=== PATIENT | male | born 1980 | race Two or more races ===

== ENCOUNTER 2024-01-16 11:03 | Emergency (ER) | payer OTHER, SELFPAY ==
[2024-01-16 11:08] VITALS: BP 149/91; PULSE 56; TEMP 36.8; O2SAT 97; BMI 31.3
--- NOTE | 2024-01-16 11:19 | ED_ITS ---
HPI HPI - Extremity Injury (Lower) General Chief Complaint: Extremity Injury, Lower Stated Complaint: LOWER EXTREMITY PAIN Time Seen by Provider: 01/16/24 11:13 Source: patient Mode of arrival: walk-in Limitations: no limitations History of Present Illness HPI Narrative: Patient is coming to the ER with a left knee pain that started almost a month ago, mentioned that one of his kids kicked him in the lateral aspect of his left knee when he started having pain medially, he mentioned that the pain initially was tolerated but sometimes he is not able to put full weight on his knee especi ally over the last few days he has the pain worse. The patient mentioned that he did not have any [id number]-[id number] medication he denies any other complaints There is also no other injuries Related Data Previous Rx's ?Medication ?Instructions ?Recorded acetaminophen 650 mg 650 mg PO Q8H PRN pain #20 tabs 01/16/24 tablet,extended release (Tylenol 8 Hour) prednisone 20 mg tablet 40 mg (2 x 20 mg) PO DAILY 5 days 01/16/24 #10 tabs Allergies Allergy/AdvReac Type Severity Reaction Status Date / Time No Known Drug Allergies Allergy Verified 01/16/24 11:10 Opioid HPI Opioid Management Most Recent Pain and Opioid Data: Last ED Pain Assessment 01/16/24 12:01 Review of Systems ROS Status of ROS 10 or more systems reviewed and unremark able except as noted in history and below Exam Narrative Exam Narrative: Nurses notes and vital signs reviewed and patient is not hypoxic. General: Well-appearing and in no apparent distress. Skin: Warm, dry, no pallor noted. No rash. Head: Normocephalic, atraumatic. Neck: Supple, non-tender. Eye: Pupils are equal, round and EOMI. No scleral icterus. Ears, Nose, Mouth, and Throat: TM are clear, no nasal mucosal hypertrophy. Oral mucosa is moist, no posterior oropharynx erythema, uvula is mid-line Cardiovascular: Regular Rate and Rhythm without murmur, gallop or rub. Respiratory: No accessory muscle use or respiratory distress. Lungs are clear to auscultation, no wheezing, rales or rhonchi Chest Wall: no tenderness Back: No midline thoracic or lumbar vertebral tenderness. No CVA tenderness Musculoskeletal: normal ROM, no calf or popliteal tenderness, no lower extremity edema/swelling, left knee examination showed that the patient have full range of movement anterior and posterior drawer signs are negative and the patient have right-sided medial tenderness GI: Abdomen is soft, non-distended. Normal bowel sounds. No masses appreciated. No tenderness to palpation. No rebound, guarding, or rigidity noted. Neurological: A&O x4. No cranial nerve dysfunction observed. No truncal ataxia. Moves all extremities. Sensation intact. Psychiatric: Cooperative and interactive. Normal mood and affect. Constitutional Vital Signs, click to edit/add: Last Vital Signs Temp 98.2 F 01/16/24 11:08 Pulse 56 L 01/16/24 11:08 Resp 18 01/16/24 11:08 BP 149/91 H 01/16/24 11:08 Pulse Ox 97 01/16/24 11:08 O2 Del Method Room Air 01/16/24 11:08 Course Vital Signs Vital signs: Vital Signs Temperature 98.2 F 01/16/24 11:08 Pulse Rate 56 L 01/16/24 11:08 Respiratory Rate 18 01/16/24 11:08 Blood Pressure 149/91 H 01/16/24 11:08 Pulse Oximetry 97 01/16/24 11:08 Oxygen Delivery Method Room Air 01/16/24 11:08 Temperature 98.2 F 01/16/24 11:08 Pulse Rate 56 L 01/16/24 11:08 Respiratory Rate 18 01/16/24 11:08 Blood Pressure 149/91 H 01/16/24 11:08 Pulse Oximetry 97 01/16/24 11:08 Oxygen Delivery Method Room Air 01/16/24 11:08 MDM - Extremity Injury (Lower) MDM Narrative Medical decision making narrative: The patient presentation is mostly secondary to ligament injury, especially with the patient having the injury a month ago and able to ambulate with no difficulty except from some pain He mentioned that the pain mostly more whenever he fully flexes knee Right now the patient was provided with a knee immobilizer in addition to prednisone and Tylenol prescription Initially I was going to go an x-ray for the patient but the patient did not want the x-ray to be done and I did make sure that he knows that he need to follow-up with orthopedic for an MRI in case the pain continues Patient referred to orthopedic as outpatient The patient is to follow up with primary care physician in next 2-3 days or to return to the emergency department should any of the signs or symptoms worsen or new symptoms develop. The patient agrees with the following Diagnosis and Treatment plan and the patient will be discharged home. Discharge Plan Discharge Stand Alone Forms: Portal Instructions Chief Complaint: Extremity Injury, Lower Clinical Impression: Knee sprain Qualifiers: Encounter type: initial encounter Involved ligament of knee: unspecified ligament Laterality: left Qualified Code(s): S83.92XA - Sprain of unspecified site of left knee, initial encounter Patient Disposition: Home, Self-Care Time of Disposition Decision: 11:20 Condition: Good Prescriptions / Home Meds: New prednisone 20 mg tablet 40 mg PO DAILY 5 Days Qty: 10 0RF acetaminophen [Tylenol 8 Hour] 650 mg tablet extended release 650 mg PO Q8H PRN (Reason: pain) Qty: 20 0RF Print Language: [place]an Instructions: Knee Sprain (DC), Knee Immobilizer (ED) Referrals: Physician,Non-Staff, [Primary Care Provider] - 1 week Zay Solano MD [Physician] - 1 week Discharge Date/Time: 01/16/24 12:01
[2024-01-16] MEDS: KETOROLAC TROMETHAMINE 30 MG/ML VIAL IM (11:34)
== END 2024-01-16 12:01 | disposition home or self-care (01) ==
PROVIDERS: Emergency Provider Emergency Medicine
DX: S83.92XA Sprain of unspecified site of left knee, initial encounter (principal); W50.1XXA Accidental kick by another person, initial encounter
CPT/HCPCS: 96372; 99284; J1885

== ENCOUNTER 2024-03-16 17:31 | Emergency (ER) | payer OTHER, SELFPAY ==
[2024-03-16 17:39] VITALS: BP 133/93; PULSE 56; TEMP 37.1; O2SAT 98; BMI 32.3
--- NOTE | 2024-03-16 19:39 | XR_ITS ---
The [address] [address] Patient Name: OLMAN MANZANARES MRN: [id number] date: 1980 Sex: M Assigned Patient Location: ER Current Patient Location: Accession/Order Number: [id number] Exam Date: 03/16/2024 19:50 Report Date: 03/16/2024 20:51 At the request of: MIRIAM LEWIS Procedure: XR knee LT 4V EXAM: XR knee LT 4V , 03/16/2024 HISTORY: knee pain COMPARISON: None. TECHNIQUE: X-rays of the left knee, 4 views. FINDINGS: No fracture or dislocation of the left knee. Mild soft tissue swelling. No evidence of knee joint effusion. The bones are well-mineralized. XR/XR knee LT 4V IMPRESSION: No fracture or dislocation left knee. Electronically authenticated by: EDGAR RAMOS Date: 03/16/2024 20:51
[2024-03-16 20:29] VITALS: BP 145/96; PULSE 64; O2SAT 100
--- NOTE | 2024-03-16 20:30 | PC.NURSE ---
left knee pain, no swelling observed
[2024-03-16] MEDS: KETOROLAC TROMETHAMINE 60 MG/2 ML VIAL IM (20:42)
--- NOTE | 2024-03-16 22:42 | ED_ITS ---
HPI HPI - Extremity Injury (Lower) General Chief Complaint: Extremity Injury, Lower Stated Complaint: Lower Extremity Pain Time Seen by Provider: 03/16/24 19:51 Source: patient Mode of arrival: walk-in Limitations: no limitations History of Present Illness HPI Narrative: This 44-year-old male who has an appointment March 22 with an orthopedic surgeon for left knee pain states that he was running yesterday and felt a pulling sensation in the medial aspect of his left knee. He did not fall. He has ongoing pain at the medial aspect of the left knee. There is no calf swelling or pain. He has not had any fever. No additional injuries or complaints. Related Data Home Medications ?Medication ?Instructions ?Recorded ?Confirmed ibuprofen 600 mg tablet 600 mg PO Q6H PRN pain 03/16/24 03/16/24 Allergies Allergy/AdvReac Type Severity Reaction Status Date / Time No Known Drug Allergies Allergy Verified 01/16/24 11:10 Opioid HPI Opioid Management Most Recent Pain and Opioid Data: No Data to Display Review of Systems ROS Status of ROS 10 or more systems reviewed and unremark able except as noted in history and below PFSH PFSH Social History Little interest or pleasure in doing things: not at all Feeling down, depressed, or hopeless: not at all Exam Narrative Exam Narrative: Vital signs and Nursing Notes reviewed: Patient is afebrile with a normal pulse, blood pressure is mildly elevated at 145/96, he is not hypoxic with pulse ox of 100% on room air General: Awake, alert, oriented, no acute distress, lying comfortably on the stretcher HEENT: Normocephalic atraumatic, mucous membranes are moist and pink, eyes are clear, normal conjunctiva, vision is grossly intact Chest: Lungs are clear to auscultation with good air entry, there is no wheezing rhonchi or rales appreciated no accessory muscle use, patient is speaking in complete sentences-no chest wall tenderness to palpation CVS: Regular rate and rhythm S1-S2, no murmurs rubs or gallops, pulses are brisk and equal bilaterally ABD: Soft, nondistended, nontender, no rebound guarding or rigidity, bowel sounds are normal, no pulsatile masses appreciated Extremities: There is mild tenderness to the medial aspect of the left knee. The joint is stable. There is no valgus or varus strain, anterior drawer testing is negative. Calfs are soft and equal in size bilaterally. Feet are warm and sensate with normal pulses. Skin: Normal in appearance without rash,pallor, petechiae or purpura Neuro: No focal deficits Constitutional Vital Signs, click to edit/add: Last Vital Signs Temp 98.7 F 03/16/24 17:39 Pulse 64 03/16/24 20:29 Resp 16 03/16/24 20:29 BP 145/96 H 03/16/24 20:29 Pulse Ox 100 03/16/24 20:29 Course Vital Signs Vital signs: Vital Signs Temperature 98.7 F 03/16/24 17:39 Pulse Rate 56 L 03/16/24 17:39 Respiratory Rate 17 03/16/24 17:39 Blood Pressure 133/93 H 03/16/24 17:39 Pulse Oximetry 98 03/16/24 17:39 Temperature 98.7 F 03/16/24 17:39 Pulse Rate 64 03/16/24 20:29 Respiratory Rate 16 03/16/24 20:29 Blood Pressure 145/96 H 03/16/24 20:29 Pulse Oximetry 100 03/16/24 20:29 MDM - Extremity Injury (Lower) MDM Narrative Medical decision making narrative: This 44-year-old male presents for evaluation of left knee pain after running yesterday. His exam is normal. X-ray is normal. He was medicated with Toradol as he requested a shot for pain. He has follow-up appointment with orthopedics on March 22. He was discharged home with prescription for ibuprofen after an Kirill wrap was applied to provide compression and immobilization of the left knee. He is otherwise neurologically intact for discharge. Discharge Plan Discharge Chief Complaint: Extremity Injury, Lower Clinical Impression: Knee sprain Qualifiers: Encounter type: initial encounter Involved ligament of knee: unspecified ligament Laterality: left Qualified Code(s): S83.92XA - Sprain of unspecified site of left knee, initial encounter Patient Disposition: Home, Self-Care Time of Disposition Decision: 20:36 Condition: Good Mode of Transportation: Private Vehicle Prescriptions / Home Meds: No Action ibuprofen 600 mg tablet 600 mg PO Q6H PRN (Reason: pain) Print Language: Maltese Instructions: Knee Sprain (ED) Referrals: Physician,Non-Staff, MD [Primary Care Provider] - 1 week Discharge Date/Time: 03/16/24 20:47
== END 2024-03-16 20:47 | disposition home or self-care (01) ==
PROVIDERS: Emergency Provider Emergency Medicine
DX: S83.92XA Sprain of unspecified site of left knee, initial encounter (principal); X50.9XXA Other and unspecified overexertion or strenuous movements or postures, initial encounter; Y93.02 Activity, running
CPT/HCPCS: 73564; 96372; 99284; J1885

== ENCOUNTER 2024-07-11 13:50 | Outpatient (OUT) | payer OTHER, SELFPAY ==
--- NOTE | 2024-07-11 | XR_ITS ---
The [address] [address] Patient Name: OLMAN MANZANARES MRN: [id number] date: 1980 Sex: M Assigned Patient Location: Current Patient Location: Accession/Order Number: [id number] Exam Date: 07/11/2024 13:51 Report Date: 07/12/2024 17:14 At the request of: LEESA MCFARLAND Procedure: XR elbow RT min 3V PROCEDURE: XR elbow RT min 3V HISTORY: RIGHT ELBOW PAIN ; no recent injury COMPARISON: None. FINDINGS: BONES:Small periarticular degenerative osteitis. No fracture or dislocation. SOFT TISSUES:No visible soft tissue swelling. EFFUSION:None visible. OTHER: Negative. XR/XR elbow RT min 3V IMPRESSION: 1. Mild degenerative changes. Electronically authenticated by: NIKKO BEE Date: 07/12/2024 17:14
--- OUTSIDE RECORDS SUMMARY | 2024-07-11 14:07 | XMS_ITS | CCD ---
Author Organization [facility] Care Team Providers Care Mapping Editor Name Role Phone Izabel Rodríguez Unavailable CastellanoMilka mai Unavailable Mateus BURK-Gracy GODOY Primary Care Provide r GRACY IGNACIO Attending Unavailable GRACY IGNACIO Referring Unavailable GRACY IGNACIO Primary Care Unavailable AGUILA ACUÑA Attending Unavailable GRACY IGNACIO Referring Unavailable GRACY IGNACIO Primary Care Unavailable NO FAMILY, PHYSICIAN Primary Care Provider Unava ilable WM Urrutia Attending Provider [phone] NO FAMILY, PHYSICIAN Primary Care Unavailable Anna Urrutia Attending Unavailable Anna Urrutia Admitting Unavailable GRACY IGNACIO Primary Care Unavailable GRACY IGNACIO Referring Unavailable GRACY IGNACIO Primary Care Unavailable AGUILA ACUÑA Admitting Unavailable AGUILA ACUÑA Attending Unavailable AGUILA ACUÑA Referring Unavailable GRACY IGNACIO Primary Care Unavailable ARCENIO TURNER Attending Unavailable GRACY IGNACIO Primary Care Unavailable Medications Current Medications Medication Drug Class(es) Dates Sig (Normalized) Sig (Original) methylPREDNISolone 4 mg oral tablet (6 sources) Corticosteroid Start: 2 methylPREDNISolone 4 MG as directed Orally for daily dose take half with breakfast, half with dinner for 6 days Jan, Active Completed/Discontinued Medications Medication Drug Class(es) Dates Sig (Normalized) Sig (Original) predniSONE 20 mg oral tablet (3 sources) Start: 01-22-2021 take 3 tablets by mouth once daily, then take 2 tablets by mouth once daily, then take 1 tablet by mouth once daily, then take 1 tablet by mouth every other day predniSONE 20 MG 1 tablet Orally as directed for 10 day(s) Take 3 tabs daily x 3 days, 2 tabs daily x 3 days, 1 tab daily x 3 days, 1 tab every other day for 3 days Dec, Not-Taking triamcinolone acetonide 40 mg/ml injectable suspension (7 sources) Corticosteroid Start: 02-12-2023 Kenalog-40 Jan, 60 mg Start: 12-14-2021 Kenalog-40 Nov, 40 mg Start: 01-22-2021 Kenalog -40 mg Dec, 40 mg Problems Active Problems Problem Classification Problem Date Documented Da te Episodic/Chronic Allergic reactions (3 sources) Allergic contact dermatitis due to plants, except food Onset: 12-14-2021 Resolved: 03-08-2022 Episodic Other injuries and conditions due to external causes (2 sources) Injury of left hand; Translations: [Unspecified injury of left wrist, hand and finger(s), initial encounter] 12-04-2023 Episodic Other injuries and conditions due to external causes (2 sources) Injury of left knee; Translations: [Unspecified injury of left lower leg, initial encounter] 12-04-2023 Episodic Other injuries and conditions due to external causes (1 source) Unspecified injury of left wrist, hand and finger(s), initial encounter; Translations: [Hand, except finger injury] 12-04-2023 Episodic Other injuries and conditions due to external causes (1 source) Unspecified injury of left lower leg, initial encounter; Translations: [Unspecified injury of left lower leg, initial encounter] Onset: 12-04-2023 Episodic Other non-traumatic joint disorders (2 sources) Knee pain Onset: 03-16-2024 Episodic Superficial injury; contusion (2 sources) Contusion of left knee; Translations: [Contusion of left knee, initial encounter] 12-04-2023 Episodic Unclassified (1 source) Mass Onset: 07-15-2023 Past or Other Problems Problem Classification Problem Date Documented Da te Episodic/Chronic Abdominal hernia (7 sources) Umbilical hernia; Translations: [Umbilical hernia without obstruction or gangrene] Onset: 08-04-2023 07-15-2023 Episodic Mood disorders (3 sources) Mood disorders Onset: 06-26-2020 06-26-2020 Unclassified (3 sources) Onset: 06-26-2020 06-26-2020 Results Test Name Value Interpretation Reference Range Facil ity XR knee LT 4V*on 12-04-2023 XR knee LT 4V* [facility] [place] [address] [place] [address] XRay Report Signed Patient: Daquan Murillo MR# : [id number] : 1980 Acct:[id number] Age/Sex: 43 / M ADM Date: 12/04/23 Loc: XDUCLY Room: Type: [facility] CLI Attending Dr: Anna Urrutia APRN Copies to: Anna Urrutia APRN Ordering Provider: Anna Urrutia APRN Date of Service: 12/04/23 XR/XR knee LT 4V*: LEFT KNEE INJURY ([id number]) XR/XR hand LT min 3V*: LEFT HAND INJURY CLINICAL DATA: Patient was kicked while wrestling yesterday and hyperextended ring finger. There is also also kicked in the left knee. LEFT HAND - 3 views COMPARISON: None AP, lateral and oblique views were obtained. There is no evidence of fracture or dislocation. There are no significant soft tissue abnormalities. XR/XR hand LT min 3V* IMPRESSION: NO ACUTE BONY INJURY. LEFT KNEE - 4 views COMPARISON: None AP, lateral and both oblique views were obtained. There is no evidence of fracture or dislocation. There is minor marginal spurring. A small knee effusion is present. There is no focal soft tissue swelling. IMPRESSION: NO ACUTE BONY INJURY. Impression dictated by: Saige Vera M.D.12/04/2023 7:07 PM Dictation Location: [place] [address] Transcribed By: [facility] 12/04/231906 Dictated By: Saige Vera MD 12/04/231846 Signed By: 12/04/231906 Normal [facility] Vital Signs Date Time Vital Sign Value Performing Clinician Faci [facility] 12-04-2023 18:07-0400 Body height 172.72 cm PHYSICIAN JAMES [facility] 12-04-2023 18:07-0400 Body mass index (BMI) [Ratio] 29.8 kg/m2 PHYSICIAN NO [facility] 12-04-2023 18:07-0400 Body temperature 98.9 [degF] PHYSICIAN NO [facility] 12-04-2023 18:07-0400 Body weight 89 kg PHYSICIAN NO [facility] 12-04-2023 18:07-0400 Heart rate 60 /min PHYSICIAN NO [facility] 12-04-2023 18:07-0400 Respiratory rate 16 /min PHYSICIAN NO [facility] 12-04-2023 18:07-0400 SaO2% (BldA) [Mass fraction] 98 % PHYSICIAN NO [facility] 08-11-2023 15:15-0500 Body height 170.2 cm [facility] 1 [facility] 08-11-2023 15:15-0500 Body mass index (BMI) [Ratio] 31.95 kg/m2 [facility] 1 [facility] 08-11-2023 15:15-0500 Body weight 92.53 kg P[facility] 1 [facility] 08-04-2023 14:34-0500 Body height 171.5 cm Aguila Acuña MD Work Phone: [facility] 08-04-2023 14:34-0500 Body mass index (BMI) [Ratio] 31.48 kg/m2 Aguila Acuña MD Work Phone: [facility] 08-04-2023 14:34-0500 Body weight 92.53 kg Aguila Acuña MD Work Phone: [facility] 08-04-2023 14:34-0500 Diastolic blood pressure 83 mm[Hg] Aguila Acuña MD Work Phone: [facility] 08-04-2023 14:34-0500 Systolic blood pressure 133 mm[Hg] Aguila Acuña MD Work Phone: [facility] 07-15-2023 14:58-0500 Body mass index (BMI) [Ratio] 31.48 kg/m2 Gracy YANEZ Work Phone: [employer] 07-15-2023 14:58-0500 Body weight 92.53 kg Gracy Ignacio APRN-CENTRAL STERILIZATION TECHNICIAN Work Phone: [employer] 07-15-2023 14:58-0500 Diastolic blood pressure 74 mm[Hg] Gracy Ignacio EARTHMOVING PLANT OPERATOR-CENTRAL STERILIZATION TECHNICIAN Work Phone: [employer] 07-15-2023 14:58-0500 Heart rate 88 /min Gracy Ignacio EARTHMOVING PLANT OPERATOR-CENTRAL STERILIZATION TECHNICIAN Work Phone: [employer] 07-15-2023 14:58-0500 Respiratory rate 16 /min Gracy Ignacio EARTHMOVING PLANT OPERATOR-CENTRAL STERILIZATION TECHNICIAN Work Phone: [employer] 07-15-2023 14:58-0500 SaO2% (BldA) [Mass fraction] 99 % Gracy Ignacio APRN-CENTRAL STERILIZATION TECHNICIAN Work Phone: [employer] 07-15-2023 14:58-0500 Systolic blood pressure 120 mm[Hg] Gracy Ignacio EARTHMOVING PLANT OPERATOR-CENTRAL STERILIZATION TECHNICIAN Work Phone: [employer] 02-12-2023 16:30-0400 Body height 172.72 cm Milka Castellano Other [employer] Other 02-12-2023 16:30-0400 Body mass index (BMI) [Ratio] 29.92 kg/m2 Milka Castellano Other [employer] Other 02-12-2023 16:30-0400 Body temperature 97.3 [degF] Mikla Castellano Other [employer] Other 02-12-2023 16:30-0400 Body weight 89.27 kg Milka Castellano Other [employer] Other 02-12-2023 16:30-0400 Diastolic blood pressure 70 mm[Hg] Milka Castellano Other [employer] Other 02-12-2023 16:30-0400 Respiratory rate 18 /min Milka Castellano Other [employer] Other 02-12-2023 16:30-0400 SaO2% (BldA) [Mass fraction] 99 % Milka Castellano Other [employer] Other 02-12-2023 16:30-0400 Systolic blood pressure 123 mm[Hg] Milka Castellano Other [employer] Other 03-08-2022 15:40-0400 Body height 172.72 cm Izabel Chenault Other [employer] Other 03-08-2022 15:40-0400 Body mass index (BMI) [Ratio] 30.53 kg/m2 Izabel Rodríguez Other [employer] Other 03-08-2022 15:40-0400 Body temperature 97.8 [degF] Izabel Chenault Other [employer] Other 03-08-2022 15:40-0400 Body weight 91.08 kg Izabel Chenault Other [employer] Other 03-08-2022 15:40-0400 Diastolic blood pressure 70 mm[Hg] Izabel Marcos Other [employer] Other 03-08-2022 15:40-0400 Respiratory rate 18 /min Izabel Marcos Other [employer] Other 03-08-2022 15:40-0400 SaO2% (BldA) [Mass fraction] 98 % Izabel Rodríguez Other [employer] Other 03-08-2022 15:40-0400 Systolic blood pressure 126 mm[Hg] Izabel Rodríguez Other [employer] Other 12-14-2021 15:45-0400 Body height 172.72 cm Izabel Rodríguez Other [employer] Other 12-14-2021 15:45-0400 Body mass index (BMI) [Ratio] 30.92 kg/m2 Izabel Rodríguez Other [employer] Other 12-14-2021 15:45-0400 Body weight 92.26 kg Izabel Rodríguez Other [employer] Other Encounters Encounter Date Encounter Type Care Provider Facility Start: 03-16-2024 End: 03-16-2024 Emergency department patient visit [facility] Start: 12-04-2023 End: 12-04-2023 ambulatory PHYSICIAN JAMES [facility] Work Phone: Start: 12-04-2023 End: 12-04-2023 Patient encounter procedure PHYSICIAN JAMES [facility] Work Phone: Start: 08-17-2023 End: 08-17-2023 Evaluation and management of inpatient ARCENIO TURNER [facility] Start: 08-17-2023 End: 08-17-2023 Evaluation and management of inpatient HOWIEEDIRAEANN ACUÑA [facility] Start: 08-11-2023 End: 08-11-2023 ambulatory [facility] Start: 08-11-2023 End: 08-11-2023 Patient encounter procedure [facility] Pre-Admission Testing 1 [facility] - Pre Admit Start: 08-04-2023 End: 08-04-2023 ambulatory [facility] Nadine THOM [facility] Start: 08-04-2023 End: 08-04-2023 Office outpatient new 30 minutes Aguila Acuña MD Work Phone: [facility] Comment on above: Umbilical hernia wit hout obstruction and without gangrene (Primary Dx) Start: 07-15-2023 End: 07-15-2023 ambulatory [facility] Start: 07-15-2023 End: 07-15-2023 Office outpatient visit 15 minutes [facility] E[employer]ING PLANT OPERATOR-CENTRAL STERILIZATION TECHNICIAN Work Phone: [facility] Comment on above: Umbilical hernia wit hout obstruction and without gangrene (Primary Dx) Start: 02-12-2023 End: 02-12-2023 ambulatory Milka Castellano Other [employer] Other Start: 02-12-2023 Office outpatient visit 15 minutes Milka Castellano [facility] Start: 03-08-2022 End: 03-08-2022 ambulatory Izabel Marcos Other [employer] Other Start: 03-08-2022 Office outpatient visit 15 minutes Izabel Marcos [facility] Start: 12-14-2021 End: 12-14-2021 ambulatory Izabel Marcos Other [employer] Other Start: 12-14-2021 Office outpatient visit 15 minutes Izabel Marcos [facility] Procedures Date Procedure Procedure Detail Performing Clinician Start: 12-04-2023 Plain X-ray of left hand PHYSICIAN NO FAMILY Start: 12-04-2023 Radiologic examinati on of knee PHYSICIAN NO FAMILY Plan of Treatment Date Care Activity Detail Author Start: 08-11-2024 Tobacco Screening Tobacco Screening [facility] Start: 08-04-2024 Adult BMI Screening Adult BMI Screen ing [facility] Start: 08-04-2024 Tobacco Screening Tobacco Screening [facility] Start: 07-15-2024 Adult BMI Screening Adult BMI Screen ing [facility] Start: 07-15-2024 Tobacco Screening Tobacco Screening [facility] Start: 12-04-2023 Patient referral [facility] Work Phone: Start: 09-01-2023 End: 09-01-2023 Patient encounter procedure 09/01/2023 3:45 PM EST Office Visit [facility] General Surgery [address] [phone] Ryanne Del Angel, [employer]AR[employer]ING PLANT OPERATOR-CENTRAL STERILIZATION TECHNICIAN [address] [place], [place] [id number] [facility] Surgery Start: 08-17-2023 End: 08-17-2023 Admission to same day surgery center 08/17/2023 1:30 PM EST - 08/17/2023 3:30 PM EST Surgery [facility] Surgery [address] [place] [phone] Aguila Acuña MD [address] [place] [phone] DAVINCI REPAIR HERNIA UMBILICAL [74514 (CPT )] [facility] Surgery Comment on above: DAVINCI REPAIR HERNI A UMBILICAL [08947 (CPT )] Start: 08-17-2023 End: 08-17-2023 Anesthesia consultation 08/17/2023 1:30 PM EST Anesthesia Event [facility] Surgery [address] [place] [phone] Arcenio Turner, DO [address] [place] [address] [facility] Start: 08-17-2023 End: 08-17-2023 DAVINCI REPAIR HERNIA UMBILICAL DAVINCI REPAIR HERNIA UMBILICAL umbilical hernia 08/17/2023 1:30 PM EST [id number] Start: 08-17-2023 Subsequent hospital visit by physician 08/17/2023 1:30 PM EST Hospital Encounter [facility] [address] [place] [address] Aguila Acuña MD [address] [place] [phone] [facility] Start: 08-11-2023 End: 08-11-2023 Patient encounter procedure 08/11/2023 3:00 PM EST Procedure visit [facility] - Pre Admit [address] [place] [address] [facility] - Pre Admit Start: 08-04-2023 End: 08-04-2023 Patient encounter procedure 08/04/2023 2:30 PM EST Office Visit [facility] [address] [place] [phone] Aguila Acuña MD [address] [place] [phone] [facility] Start: 02-27-2023 COVID-19 Vaccine ( season) COVID-19 Vaccine ( season) [facility] Start: 02-27-2023 Influenza vaccination Influenza Vacc ine [facility] Start: 1999 DTaP,Tdap and Td Vaccines (1 - Tdap) DTaP,Tdap and Td Vaccines (1 - Tdap) [facility] Start: 1998 Adult BMI Follow Up Plan Adult BMI Follow Up Plan [facility] Start: 1992 [facility] Work Phone: End: 08-03-2024 Unlisted Procedure / Surgery Unlisted Procedure / Surgery Procedures Routine Umbilical hernia without obstruction and without gangrene 1 Occurrences starting 08/04/2023 until 08/03/2024 [facility] Work Phone: Comment on above: 1 Occurrences starti ng 08/04/2023 until 08/03/2024 XR Hand - left GE 3 Views [facility] XR Knee - left 4 Views [facility] Immunizations Immunization Date Immunization Notes Care Provider Fa ciliparul 05-26-2022 influenza virus vaccine, unspecified formulation Gracy Ignacio EARTHMOVING PLANT OPERATOR-CENTRAL STERILIZATION TECHNICIAN Work Phone: [facility] Payers Date Payer Category Payer Self-pay 2023 Unknown MERON FERGUSON SS (PPO) [id number] 2023-Present [phone] [address] [place] [address] [id number] 2023 Unknown [id number] 1980 Unknown [id number] 1980 Unknown [id number] 1980 Unknown [id number] 1980 Unknown [id number] 1980 Unknown [id number] 1980 Unknown [id number] 1980 Unknown [id number] Unknown [id number] Social History Date Type Detail Facility Start: 08-09-2020 End: 07-15-2023 Sex Assigned At [facility] [employer] Other Start: 06-13-2020 End: 08-04-2023 Tobacco smoking status NHIS Never smoked tobacco [facility] Start: 06-13-2020 End: 08-04-2023 Tobacco use and exposure Smokeless tobacco non-user [facility] Start: 07-15-2023 End: 08-11-2023 Alcohol intake Current drinker of alcohol (finding) [facility] Start: 08-09-2020 End: 07-15-2023 History of Social function [facility] Adolescent depressio n screening assessment 0 [facility] Start: 1980 Sex Assigned At Not on file P [facility] Start: 08-04-2023 Alcohol Comment socially [facility] Start: 1980 Sex Assigned At Male F [facility] Clinical Notes 12-14-2021 to 08-11-2023 Patient InstructionsAguila Acuña MD - 08/04/2023 2:30 PM RENATA Jack - 07/15/2023 3:00 PM EST Note Date & Type Note Facility 08-11-2023 Instructions Anna Bosch RN - 08/11/2023 3:00 PM EST Preoperative Education Checklist- General Surgery date: 08/17/23 Surgery time: 130p Arrival time: 1130a 1. Bring a photo ID and your insurance card with you the day of surgery. You will check in at the main lobby of the [facility]- registration desk is straight ahead as soon as you walk in. Tell them you are here for surgery. 2. If you have a Living Will/Durable Power of Back Tender for Health Care that is not on file here, please bring a copy the day of surgery. 3. Please shower/bathe the night before surgery with the provided soap or wipes. Do not shower the morning of surgery- you will do use wipes when you arrive here at the hospital before getting into your surgical gown. Do not shave the area of your procedure for 2 days prior to your surgery. 4. NO powder, lotion, perfume/cologne, aftershave, make-up, deodorant, or hair products after you have bathed. 5. NO nail finnish/acrylic on at least one finger. If you are having a hand, wrist or foot surgery then all nail finnish and artificial/acrylic nails must be removed from that hand or foot. 6. Avoid ALL Aspirin and non-steroidal anti-inflammatory drugs and certain vitamins (Ibuprofen, Advil, Aleve, Excedrin, Meloxicam, Celebrex, fish/krill oil, etc.) for 7 days prior to surgery as instructed by your surgeon and/or your prescribing doctor. Tylenol IS ALLOWED. If you are on Ticlid, Xarelto, Eliquis, Pradaxa, Plavix or Coumadin, please check with your prescribing doctor for instructions for when to stop them. 7. If you use an inhaler, continue to use it routinely. 8. Nothing to eat or drink (not even water, gum, mints, or hard candy!) AFTER midnight prior to your surgery. 9. Take only medications that you are instructed to on the morning of surgery with a TINY SIP OF WATER. 10. Choose a responsible adult that will be able to drive you home when you are discharged from your hospital stay for your surgery and can stay with you in your home for 24 hours after your procedure. You must NOT drive any vehicle or operate any machinery for 24 hours after surgery. 11. When you dress for your appointment, please wear loose fitting clothing that is appropriate to accommodate your surgical area procedure. BRING WITH YOU ANY DEVICES YOU MAY NEED: DARLYN hose, ice machine, sling/swath, brace or special shoe, oversized zip-up or button up shirt, CPAP machine if staying overnight. 12. Do NOT wear jewelry, watches, or any piercings or metal for surgery- leave these valuables and money at home. 13. Do NOT wear contact lenses for surgery- glasses are okay if needed. 14. The anesthesiologist will talk with you the day of surgery and will ask you to sign a Consent Form. 15. Refrain from smoking or any type of tobacco use for at least 8 hours and marijuana for 24 hours prior to arrival for your surgery. 16. If a GREEN BLOOD band is given to you, please bring it with you for the day of surgery. 17. Notify your surgeon if you develop any illness before your surgery. 18. If you are staying overnight, please DO NOT BRING your home medications with you. 19. If you have any questions prior to surgery, please call the Preadmission Testing office at [phone], Mon.-Fri. 7 a.m.-3 p.m. Leave a voicemail if needed. No current outpatient medications on file. How to Avoid an Infection after Your Surgery Your doctor will give you specific instructions, but remember: -ALWAYS wash hands before caring for your incision. -No picking, scratching, or rubbing your incision. -No creams, lotion, powder, rubbing alcohol or hydrogen peroxide on the incision (can harm the tissue and slow healing). -Your doctor will give you specific instructions for what type of dressing you will need and how often it will need changed for infection purposes. -No tight clothing on incision. -Do not allow anyone to touch your incision unless they are cleaning, checking, or redressing it (be sure they wash their hands first). -No contact of your incision with pets; avoid sleeping with pets. -Take full course of antibiotic if prescribed for you after surgery- do not stop unless directed to by your physician. You may also be given an antibiotic prior to your surgery to help prevent surgical site infections. -Eat a healthy and varied diet including proteins, fruits, and vegetables to help promote wound healing and keep blood sugars under control if you are diabetic. -Smoking slows the healing process by decreasing the amount of oxygen in your blood that is needed for tissue healing. Try to avoid or stop smoking if possible. LOOK at your incision each morning and each night to check the progress of healing. Some soreness, numbness, itching and/or mild bruising around the incision is normal. Call your doctor if you notice any of the following: -Increased redness or hardening around the incision area. -Increased pain at the incision site. -Incision feels hot to the touch. -Swelling or pulling apart of the incision edges. -Yellow or green drainage or foul odor coming from the incision. -Bleeding from the incision (apply pressure as needed). -Fever higher than 101 degrees Fahrenheit for more than 4 hours. SHOWERING: Your doctor will give you specific instructions, but remember: -Be careful getting into and out of the shower. -Showers should be quick (5 minutes or less). -Use a clean washcloth to gently wash your incision with soap and water and pat the area dry with a clean towel. -No re-using wash cloths or towels; get a fresh one to clean your incision. -Do not soak in the bathtub, go swimming or use a hot tub (Jacuzzi), or perform activities where your incision is submerged in water or exposed to any fluids or substances until instructed by your doctor. -If your have the sticky strips (steri-strips) over the incision, it is OK to shower with them. Do not remove them. Let them fall off on their own. If you have a question, call your doctor s office. Go to the follow-up appointment with your doctor. documented in this encounter [facility] 08-04-2023 History of Present illness Narrative Images from the original note were not included. Chief Complaint: Umbilical hernia History of Present Illness: Daquan Toth is a 43 y.o. male to the office with an umbilical hernia. He states that he has had the hernia for years however it did not bother him. Over the last 2 months, it has become more bothersome and painful. It is especially tender when his kids jump on him or when it is touched. Sometimes the pain is random. He notes discomfort with heavy lifting, pushing and pulling. He has avoided working out due to concerns of making the hernia worse. He denies any obstructive symptoms. He has a nonsmoker. He denies any past medical history. He denies any prior surgeries. He is active and denies any chest pain, shortness of breath or palpitations at rest or on exertion HPI Review of Systems Constitutional: Negative for fever and chills. Respiratory: Negative for shortness of breath. Cardiovascular: Negative for chest pain and palpitations. Gastrointestinal: Negative for nausea, vomiting and abdominal pain. Hernia Genitourinary: Negative for dysuria and difficulty urinating. Skin: Negative for rash and wound. Allergic/Immunologic: Negative for immunocompromised state. Neurological: Negative for weakness and light-headedness. Hematological: Does not bruise/bleed easily. Psychiatric/Behavioral: Negative for behavioral problems and confusion. History reviewed. No pertinent past medical history. History reviewed. No pertinent surgical history. No Known Allergies No current outpatient medications on file. Social History Socioeconomic History Marital status: Spouse name: Not on file Number of children: Not on file Years of education: Not on file Highest education level: Not on file Occupational History Not on file Tobacco Use Smoking status: Never Smokeless tobacco: Never Vaping Use Vaping Use: Never used Substance and Sexual Activity Alcohol use: Yes Comment: socially Drug use: Never Sexual activity: Not on file Other Topics Concern Not on file Social History Narrative Not on file Social Determinants of Health Financial Resource Strain: Not on file Food Insecurity: Not on file Transportation Needs: Not on file Physical Activity: Not on file Stress: Not on file Social Connections: Not on file Interpersonal Safety: Not on file Housing Instability: Not on file History reviewed. No pertinent family history. Physical Exam Vitals reviewed. Constitutional: Appearance: Normal appearance. HENT: Head: Normocephalic and atraumatic. Eyes: Pupils: Pupils are equal, round, and reactive to light. Cardiovascular: Rate and Rhythm: Normal rate. Pulmonary: Effort: Pulmonary effort is normal. Abdominal: General: There is no distension. Palpations: Abdomen is soft. Tenderness: There is no abdominal tenderness. Hernia: A hernia is present. Comments: 2 cm umbilical hernia, with incarcerated fat, partially reducible Musculoskeletal: General: No swelling. Skin: General: Skin is warm and dry. Neurological: Mental Status: He is alert and oriented to person, place, and time. Mental status is at baseline. Psychiatric: Mood and Affect: Mood normal. Behavior: Behavior normal. Vital Signs: Blood pressure 133/83, height 171.5 cm (5' 7.5 ), weight 92.5 kg (204 lb). Respiratory Source: No data recorded Admission Weight: Weight: 92.5 kg (204 lb) Labs: No results found for: WBC , HGB , HCT , MCV , PLT Lab Results Component Value Date GLU 126 (H) 06/26/2020 CALCIUM 9.2 06/26/2020 K 3.7 06/26/2020 CO2 28 06/26/2020 CL 102 06/26/2020 BUN 15 06/26/2020 CREATININE 0.92 06/26/2020 No results found for: AMYLASE No results found for: LIPASE Lab Results Component Value Date ALT 49 (H) 06/26/2020 AST 32 06/26/2020 ALKPHOS 110 06/26/2020 No results found for: INR , PROTIME Imaging: None Assessment: Daquan Toth is a 43 y.o.male with symptomatic umbilical hernia Umbilical hernia without obstruction and without gangrene [K42.9] Plan: Robotic umbilical hernia repair with mesh The reasons for surgery, alternatives to surgery, and natural history of the disease without surgery were addressed with the patient. We discussed the potential risks and benefits of the surgery. I gave ample opportunity for the patient to ask questions which I answered to their apparent satisfaction. He seemed to understand and provided consent. Evaluation included: Preparing to see the patient (e.g., review of tests) Obtaining and/or reviewing separately obtained history Performing a medically appropriate examination and/or evaluation Counseling and educating the patient/family/caregiver Referring and communicating with other health customer care coordinator Aguila Acuña MD [facility] General Surgery [place] [facility] encounter [facility] History of Present illness Narrative Images from the original note were not included. [address] [facility] [id number] SUBJECTIVE: Patient ID: Daquan Toth is a 43 y.o. male. HPI-Patient is a 43 year old male presenting for possible hernia in the umbilical region. Patient has had the hernia for the past year. Patient states there has been pain since 2 weeks ago. Patient states pain is stabbing in nature. Lifting his kids make the pain worse. Patient states pain went away after that. Patient states that pain was 3/10 when pain presented. Patient inquiring of what a hernia is and how it is treated. The following portions of the patient's history were reviewed and updated as appropriate: allergies, current medications, past family history, past medical history, past social history, past surgical history and problem list. REVIEW OF SYSTEMS: Review of Systems Constitutional: Negative for activity change, appetite change, chills, fatigue, fever and unexpected weight change. HENT: Negative for congestion, ear pain, sinus pressure, sinus pain and sore throat. Eyes: Negative for photophobia, pain, discharge and visual disturbance. Respiratory: Negative for cough and shortness of breath. Cardiovascular: Negative for chest pain, palpitations and leg swelling. Gastrointestinal: Positive for abdominal pain. Negative for diarrhea, nausea and vomiting. Endocrine: Negative for polydipsia, polyphagia and polyuria. Genitourinary: Negative for difficulty urinating, frequency, hematuria and urgency. Musculoskeletal: Negative for arthralgias, gait problem, joint swelling and neck pain. Skin: Negative for pallor and rash. Neurological: Negative for dizziness, weakness, light-headedness and numbness. Psychiatric/Behavioral: Negative for sleep disturbance. The patient is not nervous/anxious. PHYSICAL EXAMINATION: Vitals: 07/15/23 1458 BP: 120/74 Pulse: 88 Resp: 16 SpO2: 99% Weight: 92.5 kg (204 lb) Physical Exam Constitutional: Appearance: Normal appearance. He is well-developed and normal weight. HENT: Head: Normocephalic and atraumatic. Right Ear: Tympanic membrane, ear canal and external ear normal. Left Ear: Tympanic membrane, ear canal and external ear normal. Nose: Nose normal. Mouth/Throat: Mouth: Mucous membranes are moist. Pharynx: Oropharynx is clear. Eyes: Conjunctiva/sclera: Conjunctivae normal. Pupils: Pupils are equal, round, and reactive to light. Cardiovascular: Rate and Rhythm: Normal rate and regular rhythm. Heart sounds: Normal heart sounds. Pulmonary: Effort: Pulmonary effort is normal. Breath sounds: Normal breath sounds. Abdominal: General: Bowel sounds are normal. Palpations: Abdomen is soft. Hernia: A hernia is present. Hernia is present in the umbilical area. Musculoskeletal: General: Normal range of motion. Cervical back: Normal range of motion. Skin: General: Skin is warm and dry. Capillary Refill: Capillary refill takes less than 2 seconds. Neurological: Mental Status: He is alert and oriented to person, place, and time. Psychiatric: Mood and Affect: Mood normal. ASSESSMENT/PLAN: There are no diagnoses linked to this encounter. 1.) Patient advised against heavy lifting. 2.) Patient educated on hernia. 3.) Referral to Dr. Acuña at general surgery Follow-up: Yearly for wellness or as needed RENATA Barajas 07/15/23 1534 documented in this encounter [facility] 02-12-2023 Evaluation note Encounter Date Diagnosis Assessment Notes Jan, Poison jeffery dermatitis (ICD-10 - L23.7) Discussed diagnosis with patient. Kenalog injection provided in office. Will send in rx of steroid to take as directed. Advised to take medications with food and plenty of water, complete entire course even if feeling better. Patient instructed not to scratch or pick at rash. May use hydrocortisone cream or calamine lotion for topical relief. Patient may also use cool wet compress for itching relief. Keep rash open to air. Wash all clothing/items that could have come into contact with plant oil. Follow up with PCP in 1 week or sooner if symptoms worsen. Immediate eval by ER if develop fever, stiff neck, nausea, vomiting, joint/body aches, increase in swelling, redness, warmth, red streaking, purulent drainage, or any other new or concerning symptoms arise. Patient verbalizes understanding and is agreeable to treatment plan [facility] Other 09-10-2022 Evaluation note* Encounter Date Diagnosis Assessment Notes Treatment Notes Treatment Clinical Notes Feb, Poison jeffery dermatitis (ICD-10 - L23.7) Kenalog IM given in office today due to moderate nature of discomfort. Take medications as directed and start tomorrow. Complete all doses. Wash all belongings that came in contact with plant oils in diluted dishwashing liquid. May try to use Calamine lotion and OTC Zyrtec for symptom relief. Follow up with primary care provider or dermatology if symptoms do not improve or worsen with treatment [facility] Other 06-18-2022 Evaluation note* Encounter Date Diagnosis Assessment Notes Treatment Notes Treatment Clinical Notes Nov, Poison jeffery dermatitis (ICD-10 - L23.7) Kenalog IM given in office today due to moderate nature of discomfort. Take medications as directed and start tomorrow. Complete all doses. Wash all belongings that came in contact with plant oils in diluted dishwashing liquid. May try to use Calamine lotion and OTC Zyrtec for symptom relief. Follow up with primary care provider or dermatology if symptoms do not improve or worsen with treatment [facility] Other Evaluation note* Diagnosis Umbilical hernia without obstruction and without gangrene- [facility] Diagnosis Umbilical hernia without obstruction and without gangrene- Primary [facility] information available [facility] Work Phone: Evaluation note* Diagnosis Onset Date Resolution Status Contusion of left knee acute Injury of left hand acute [facility] Work Phone: Instructions* Attachments The following attachments cannot be sent through Care Everywhere. * Umbilical Hernia, Adult (Prydein[place]) [facility] Hospital[facility]ructionsNot on file documented in this encounterMer[facility] HospitalReason for referral (narrative)* Consultation (Routine) - Authorized Specialty Diagnoses / Procedures Referred By Gaviota tolentino Referred To Contact General Surgery Diagnoses Umbilical hernia without obstruction and without gangrene Gracy Ignacio APRN-CNP [address] [place] [address] Aguila Acuña MD [address] [place] [address] Referral ID Status Reason Start Date Expiration Date Visits Requested Visits Authorized [id number] Authorized Specialty Services Required 07/15/2023 07/14/2024 1 1 [facility] Reason for Referral Specialty Diagnoses / Procedures Referred By Gaviota t Referred To Contact Diagnoses Umbilical hernia without obstruction and without gangrene Procedures Unlisted Procedure / Surgery Aguila Acuña MD [address] [place] [address] Referral ID Status Reason Start Date Expiration Date V isits Requested Visits Authorized [id number] Pending Review 08/04/2023 08/03/2024 1 1 Summary Purpose Family History No Family History Records Found Relationship Condition Age at Onset Recorded Date/T glen father Unknown Advance Directives No Advanced Directives Records Found Advance Directive Response Recorded Date/ Time Advance Directives No December 03 6:00pm Chief Complaint and Reason for Visit Chief Complaint Left knee injury, le ft ring finger injury Chief Complaint Left knee injury, le ft ring finger injury Reason for Visit Contusion of left kn ee Injury of left hand Additional Source Comments REASON FOR VISIT (unrecogniz ed section and content) Reason Comments Mass umbilical Reason Comments Hernia UMBILICAL HERNIA REF BY GRACY IGNACIO Specialty Diagnoses / Procedures Referred By Gaviota t Referred To Contact General Surgery Diagnoses Umbilical hernia without obstruction and without gangrene Gracy Ignacio APRN-CNP [address] [place] [address] Aguila Acuña MD [address] [place] [address] Referral ID Status Reason Start Date Expiration Date V isits Requested Visits Authorized [id number] Closed Specialty Services Required 07/15/2023 07/14/2024 1 1 Care Teams (unrecognized sec tion and content) Mapping Editor Relationship Specialty Start Date End Date Gracy Ignacio APRN-CNP [address] [place] [address] PCP - General Family Medicine 06/13/20 Mapping Editor Relationship Specialty Start Date End Date Gracy Ignacio APRN-CNP [address] [place] [address] PCP - General Family Medicine 06/13/20 Mapping Editor Relationship Specialty Start Date End Date Gracy Ignacio APRN-CENTRAL STERILIZATION TECHNICIAN [address] [place] [address] PCP - General Family Medicine 06/13/20 Team Status: Active Member Role Status Dates PHYSICIAN NO FAMILY Primary Care Provider Active Team Status: Inactive Member Role Status Dates PHYSICIAN NO FAMILY Primary Care Provider Active Start: December 04, 2023 End: December 04, 2023 Anna Urrutia APRN Attending Provider Active S tart: December 04, 2023 End: December 04, 2023 Team Status: Active Member Role Status Dates PHYSICIAN NO FAMILY Primary Care Provider Active Start: December 04, 2023 Anna Urrtuia APRN Attending Provider Active S tart: December 04, 2023 (unrecognized sect ion and content) No Status Records FoundNo Status Records FoundNo Status Records Found INFORMATION SOURCE (unrecogn ized section and content) DATE CREATED AUTHOR 08/10/2023 [facility] DATE CREATED AUTHOR AUTHOR'S ORGANIZ ATION 12/31/2023 [facility] DATE CREATED AUTHOR AUTHOR'S ORGANIZ ATION 03/19/2024 [facility] Goals (unrecognized section and content) Goals may be documented in a n alternate section FOR RECORDS PERTAINING TO PATIENTS WHO ARE OR HAVE BEEN ENROLLED IN A CHEMICAL DEPENDENCY/SUBSTANCEABUSE PROGRAM, SOME INFORMATION MAY BE OMITTED. This clinical summary was aggregated from multiple sources. Caution should be exercised in using it in the provision of clinical care. This summary normalizes information from multiple sources, and as a consequence, information in this document may materially change the coding, format and clinical context of patient data. In addition, data may be omitted in some cases. CLINICAL DECISIONS SHOULD BE BASED ON THE PRIMARY CLINICAL RECORDS. [employer] provides no warranty or guarantee of the accuracy or completeness of information in this document.
== END 2024-07-11 13:51 | disposition home or self-care (01) ==
LOC: EC 13:50
PROVIDERS: Visit Provider Student in an Organized Health Care Education/Training Program
DX: M25.521 Pain in right elbow (principal)
CPT/HCPCS: 73080